=== PATIENT | male | born 1970 | race Caucasian/White ===

== ENCOUNTER 2018-06-04 19:41 | Emergency (ER) | payer OTHER ==
[~2018-06-04] VITALS: Ht 188 cm; Wt 118.2 kg
[2018-06-04] MEDS ORDERED: CRES10TA32 PO (19:56)
[2018-06-04] MEDS ORDERED: CITA-229 PO (19:56)
[2018-06-04] MEDS ORDERED: BUSP10TA PO (19:56)
[2018-06-04 20:16] LABS: BASO # 0.1 10^3/uL (0.0-0.2); BASO % 0.8 % (0.0-1.0); EOS # 0.3 10^3/uL (0.0-0.50); EOS % 3.1 % (0.0-3.0); HEMATOCRIT 44.8 % (42.0-52.0); LYMPH # 1.4 10^3/uL (1.5-4.5); LYMPH % 16.1 % (24.0-44.0); MEAN CORPUSCULAR HEMOGLOBIN 29.5 pg (27.0-33.0); MEAN CORPUSCULAR HGB CONC 33.5 g/dl (32.0-36.5); MONO # 0.9 10^3/uL (0.0-0.8); MONO % 10.5 % (0.0-5.0); NEUTROPHILS # 5.8 10^3/uL (1.8-7.7); NEUTROPHILS % 69.1 % (36.0-66.0); PLATELET COUNT, AUTOMATED 315 10^3/uL (150-450); RED BLOOD COUNT 5.09 10^6/uL (4.30-6.10); WHITE BLOOD COUNT 8.5 10^3/uL (4.0-10.0)
[2018-06-04 20:27] LABS: INR 0.96; PROTHROMBIN TIME 12.9 SECONDS (12.1-14.4)
[2018-06-04 20:28] LABS: PARTIAL THROMBOPLASTIN TIME 26.9 SECONDS (25.4-37.6)
[2018-06-04 20:50] LABS: ALT/SGPT 44 U/L (12-78); BILIRUBIN,DIRECT 0.1 MG/DL (0.0-0.2); BILIRUBIN,TOTAL 0.4 MG/DL (0.2-1.0); BLOOD UREA NITROGEN 17 MG/DL (7-18); CALCIUM LEVEL 8.9 MG/DL (8.5-10.1); CARBON DIOXIDE LEVEL 26 MEQ/L (21-32); CHLORIDE LEVEL 103 MEQ/L (98-107); CK-MB VALUE MASS < 1.0 NG/ML (<3.6); CPK CREATINE PHOSPHOKINASE 179 U/L (39-308); CREATININE FOR GFR 1.05 MG/DL (0.70-1.30); FREE T4 0.98 NG/DL (0.76-1.46); GLOMERULAR FILTRATION RATE > 60.0 (>60); GLUCOSE, FASTING 100 MG/DL (70-100); LIPASE 173 U/L (73-393); MB/CK RELATIVE INDEX 0.56 (< OR =4); POTASSIUM SERUM 4.3 MEQ/L (3.5-5.1); SODIUM LEVEL 138 MEQ/L (136-145); TOTAL PROTEIN 6.7 GM/DL (6.4-8.2); TROPONIN I < 0.02 NG/ML (< 0.10)
[2018-06-04] MEDS ORDERED: ASPIRIN 81 MG CHEW TABLET PO ONE (21:00)
[2018-06-04] MEDS ORDERED: ISOVUE-370 76% 100ML VIAL (Q9967) As Ordered ONE (21:18)
[2018-06-04] MEDS: NITROGLYCERIN 0.4 MG SUBL TABLET SL PRN ×3 (21:33→21:42)
--- NOTE | 2018-06-04 22:50 | REPVR ---
EXAM: CT Angiography Chest With Contrast EXAM DATE/TIME: 06/04/2018 10:12 PM CLINICAL HISTORY: 47 years old, male; Pain; Chest pain; Additional info: Chest pain, SOB TECHNIQUE: Axial computed tomographic angiography images of the chest with intravenous contrast using CT angiography protocol. All CT scans at this facility use at least one of these dose optimization techniques: automated exposure control; mA and/or kV adjustment per patient size (includes targeted exams where dose is matched to clinical indication); or iterative reconstruction. Coronal and sagittal reformatted images were created and reviewed. MIP reconstructed images were created and reviewed. CONTRAST: 75 ml of ISOVUE 370 administered intravenously. COMPARISON: CR Chest, 2 view PA, Lat 06/04/2018 8:12 PM FINDINGS: Pulmonary arteries: There is opacification of the pulmonary arteries with no evidence of pulmonary embolus. Aorta: There is opacification of the aorta which appears intact. Lungs: Clear lungs. Pleural space: There is no evidence of pneumothorax. Heart: The heart is normal in size and there is no pericardial effusion. Lymph nodes: Small hilar lymph nodes. Bones/joints: Unremarkable. No acute fracture. Soft tissues: Unremarkable. IMPRESSION: No evidence of pulmonary embolus. Electronically signed by: Devendra Malhotra On 06/04/2018 22:50:35 PM
[2018-06-04 23:15] VITALS: BP 118/61
--- NOTE | 2018-06-05 07:40 | REP ---
PA and lateral chest: There are no comparisons. The lung irene are clear. The cardiac size is normal. The jeremy, mediastinum, and skeletal structures are unremarkable. Impression: Negative PA and lateral chest. Electronically Signed by Garcia Brumfield MD 06/05/2018 07:31 A
--- NOTE | 2018-06-05 17:04 | ECGEPIP ---
Stationary ECG Study [facility] - ED Test Date: 2018-06-04 Pat Name: RIZWAN CACERES Department: Room: - Gender: M [employer] Senior Associate: [facility] : [id number] Requested By: CHRISTIANO Alberts Order Number: [id number] Reading MD: Joseph Elena Measurements Intervals [place] Rate: 99 P: 23 [place]: 150 QRS: 28 QRSD: 98 T: 29 QT: 325 QTc: 417 Interpretive Statements SINUS RHYTHM NO PRIORS FOR COMPARISON Electronically Signed On 06-05-2018 17:04:25 EST by Joseph Elena
== END 2018-06-04 23:35 | disposition home or self-care (01) ==
LOC: M ED 19:41
DX: R07.9 Chest pain, unspecified (principal)
CPT/HCPCS: 71046; 71275; 80048; 80076; 82550; 82553; 83690; 84439; 84443; 84484; 85025; 85610; 85730; 93005; 93041; 94760; 99285; Q9967

== ENCOUNTER 2018-11-26 20:53 | Emergency (ER) | payer OTHER ==
[~2018-11-26] VITALS: Ht 182.9 cm; Wt 113.6 kg
[~2018-11-26 20:53] MED LIST: BUSP10TA PO; CITA10TA6 PO; CRES10TA PO
[2018-11-26] MEDS ORDERED: CEPHALEXIN 500 MG CAP PO ONE (23:45)
[2018-11-26] MEDS ORDERED: LIDOCAINE 2% MDV 20 ML VIAL SC ONE (23:45)
[2018-11-27] MEDS ORDERED: KEFL500C17 PO (00:21)
[2018-11-27 00:26] VITALS: BP 132/87
== END 2018-11-27 00:27 | disposition home or self-care (01) ==
LOC: M ED 20:53
DX: S61.412A Laceration without foreign body of left hand, initial encounter (principal); W26.8XXA Contact with other sharp object(s), not elsewhere classified, initial encounter; Y92.018 Other place in single-family (private) house as the place of occurrence of the external cause; J43.9 Emphysema, unspecified; F33.9 Major depressive disorder, recurrent, unspecified; F41.9 Anxiety disorder, unspecified; E78.5 Hyperlipidemia, unspecified; Z79.899 Other long term (current) drug therapy; F17.210 Nicotine dependence, cigarettes, uncomplicated